=== PATIENT | male | born 1990 | race Caucasian/White ===

== ENCOUNTER 2016-07-12 12:02 | Inpatient (IN) | payer BC, OTHER ==
[~2016-07-12] VITALS: Ht 177.8 cm; Wt 79.4 kg
--- NOTE | 2016-07-12 14:50 | NUR ---
Admission Note VS: BP: 113/61 HR:66, SpO2: 97%, RR: 16, Temp: 98.2 Pain: 0/10 Height: 5'10" Weight: 175 LB Allergies: JOCELIN Pt is a 25 y/o female admitted to [facility] on 07/12/16 at 1450. Pt is under the care of Dr. Lux for opiate and benzo dependence. Pt denies suicidal and homicidal ideations at this time. Pt denies being hospitalized in the past 30 days. Pt denies Chest Pain and SOB. Pt reports using Wellbutrin 300mg, Sertralize 100mg, Preparation H cream, Tylenol 500mg, Zquil and Omeprazole. Upon assessment pt's skin is intact. CIWA 4 and COWS 4 upon admission. NKA, A/Ox4 and able to answer questions necessary for the admission process. Pt is Full Code. VS WNL, Regular Diet. Pt denies having seizures. Pt denies having a PCP. Breathing is even and unlabored, SpO2 is 97% on RA. Pt ambulates with a steady gait, pt reports feeling very tired. Pt states bowel habits are normal but bleeding is sometimes present in stool due to hemorrhoids Pt reports Hx of treatment in [facility] in 2013. Pt reports living with alone. Hx of Anxiety and Depression. Pt states he already got the PNA vaccination and wants the Flu vaccination. Pt smokes approximately [address] Lux has been notified, and has placed client under observation. All needs have been met. Pt has been oriented to the room and the unit. All safety measures in place per hospital policy. Bed in lowest position, side rails up x2 and padded, call-light within reach. Will continue to monitor. Substance Abuse: Xanax 2-3 mg daily for 11 days, last used 2 mg on 07/11/16 at 0030 Oxycodone 45 mg for 10 days, last used 30 mg on 07/11/16 at 0030 Percoset "40mg" for 10 days, last used 30mg on 07/08/16 [place] "25 mg" for 10 days, last used 20mg on 07/08/16 Marijuana 1 gram for 3 weeks, last used 3/4 of a gram on 07/12/16 at 1100
[2016-07-12] MEDS ORDERED: PHEN26CR RC (15:36)
[2016-07-12] MEDS ORDERED: BUPR300T54 PO (15:36)
[2016-07-12] MEDS ORDERED: OMEP20TA68 PO (15:36)
[2016-07-12] MEDS ORDERED: ZQUIL (15:36)
[2016-07-12] MEDS ORDERED: ACET-2154 PO (15:36)
[2016-07-12] MEDS ORDERED: SERT100T PO (15:36)
[2016-07-12 15:37] VITALS: BP 113/61
[2016-07-12 15:48] LABS: *AMPHETAMINE, URINE NEGATIVE (NEGATIVE); *BARBITURATE, URINE NEGATIVE (NEGATIVE); *CANNABINOID, URINE POSITIVE (NEGATIVE); *COCCAINE, URINE NEGATIVE (NEGATIVE); *OPIATE, URINE POSITIVE (NEGATIVE); *PHENCYCLIDINE SCREEN,URINE NEGATIVE (NEGATIVE)
[2016-07-12] MEDS ORDERED: ONDANSETRON ODT 4 MG TAB.RAPDIS SL PRN (17:00)
[2016-07-12] MEDS ORDERED: METHOCARBAMOL 750 MG TABLET PO PRN (17:00)
[2016-07-12] MEDS ORDERED: CLONIDINE HCL 0.1 MG TABLET PO PRN (17:00)
[2016-07-12] MEDS ORDERED: IBUPROFEN 400 MG TABLET PO PRN (17:00)
[2016-07-12] MEDS ORDERED: diphenhydrAMINE 50 MG CAPSULE PO PRN (17:00)
[2016-07-12] MEDS ORDERED: MAGNESIUM HYDROXIDE 30 ML LIQUID UDC PO PRN (17:00)
[2016-07-12] MEDS ORDERED: ACETAMINOPHEN 325 MG TABLET PO PRN (17:00)
[2016-07-12] MEDS ORDERED: BUPRENORPHINE HCL 2 MG TAB.SUBL SL PRN (17:00)
[2016-07-12] MEDS ORDERED: HYDROXYZINE PAMOATE 25 MG CAPSULE PO PRN (17:00)
[2016-07-12] MEDS ORDERED: ONDANSETRON 4 MG/2 ML VIAL IM PRN (17:00)
[2016-07-12] MEDS ORDERED: MAG HYDROX/AL HYDROX/SIMETH 30 ML LIQUID UDC PO PRN (17:00)
[2016-07-12] MEDS ORDERED: DICYCLOMINE HCL 20 MG TABLET PO PRN (17:00)
[2016-07-12] MEDS ORDERED: LOPERAMIDE HCL 2 MG CAPSULE PO PRN ×2 (17:00)
[2016-07-12] MEDS ORDERED: LORAZEPAM 2 MG/1 ML VIAL IM PRN (17:00)
[2016-07-12] MEDS ORDERED: LORAZEPAM 1 MG TABLET PO PRN ×2 (17:00)
[2016-07-12] MEDS ORDERED: MIRALAX 17 GM POWD.PACK PO PRN (17:00)
[2016-07-12 17:40] LABS: BASOPHILS # (AUTO) 0.1 K/uL (0.0-0.2); BASOPHILS % (AUTO) 0.8 % (0.0-2.0); EOSINOPHILS % (AUTO) 0.2 % (0.0-7.0); HEMATOCRIT 43.8 % (40.0-50.0); HEMOGLOBIN 14.7 g/dL (14.0-18.0); LYMPHOCYTES # (AUTO) 1.9 K/uL (0.8-4.8); LYMPHOCYTES % (AUTO) 26.1 % (20.5-51.5); MEAN CORPUSCULAR HEMOGLOBIN 28.6 uug (27.0-31.0); MEAN CORPUSCULAR HGB CONC 34 g/dL (32.0-37.0); MEAN CORPUSCULAR VOLUME 85.5 fL (82.0-92.0); MONOCYTES # (AUTO) 0.4 K/uL (0.1-1.30); MONOCYTES % (AUTO) 5.7 % (0.0-11.0); NEUTROPHILS # (AUTO) 4.9 K/uL (1.8-8.9); NEUTROPHILS % (AUTO) 67.2 % (38.5-71.5); PLATELET COUNT (AUTO) 196 K/uL (150-450); RED BLOOD CELL COUNT(AUTO) 5.13 MIL/uL (4.70-6.10); RED CELL DISTRIBUTION WIDTH 11.6 % (11.5-14.5); WHITE BLOOD COUNT (AUTO) 7.4 K/uL (4.0-11.2)
[2016-07-12 17:51] LABS: ETHANOL < 3 MG/DL (0-0)
[2016-07-12 18:12] LABS: ALANINE AMINOTRANSFERASE 19 U/L (16-63); ALBUMIN 4.1 g/dL (3.4-5.0); ALKALINE PHOSPHATASE 53 U/L (50-136); ASPARTATE AMINOTRANSFERASE 19 U/L (15-37); BILIRUBIN,TOTAL 0.6 mg/dL (0.2-1.0); CALCIUM 8.9 mg/dL (8.5-10.1); CARBON DIOXIDE 31 mmol/L (21-32); CHLORIDE 104 mmol/L (98-107); GFR 61 mL/min (>60); GLUCOSE 88 mg/dL (74-106); HIV-1 p24 ANTIGEN NON REACTIVE (NONREACTIVE); HIV-1/2 ANTIBODY NON REACTIVE (NONREACTIVE); POTASSIUM 3.8 mmol/L (3.5-5.1); SODIUM SERUM 141 mmol/L (136-145); TOTAL PROTEIN, SERUM 7.3 g/dL (6.4-8.2); UREA NITROGEN, BLOOD 11 mg/dL (7-18)
[2016-07-12 18:20] LABS: CREATININE 1.4 mg/dL (0.6-1.3); THYROID STIMULATING HORMONE 0.462 mIU/mL (0.358-3.740)
--- NOTE | 2016-07-12 19:28 | NUR ---
END OF SHIFT Endorsed to binder folder operator nurse. 25 year old male admitted for opiate and benzo dependence. Pt is A/O x4. Reports medal history of anxiety and depression. Most recent COWS 4, CIWA 4. NKA, full code regular diet. Pt has not been placed on a taper, and is on PRN medications for now, No PRN medications needed or administered throughout shift. Pt V/S remain WNL. All needs met, safety precautions are in place, binder folder operator to continue monitoring.
--- NOTE | 2016-07-12 19:30 | NUR ---
START OF SHIFT NOTE : Pt. is 25 year old male admitted for opiate and benzo dependence on 07/12/2016. Pt is A/O x4. Reports medal history of anxiety and depression. Most recent COWS 4, CIWA 4 at 16:00. NKA, full code regular diet. Pt has been placed on 4 days Subutex taper, started on 07/13/2016 and is on PRN medications for now. Pt V/S remain WNL. All needs met, safety precautions are in place, hourly shift manager to continue monitoring. Safety measures in place : bed on lowest position with side rails x2 up for safety, call light within reach. Will continue to monitor closely and offer help.
[2016-07-12 20:00] VITALS: BP 98/44
--- NOTE | 2016-07-13 06:43 | NUR ---
END OF SHIFT NOTE : Pt. is 25 year old male admitted for opiate and benzo dependence on 07/12/2016. Pt is A/O x4. Reports medal history of anxiety and depression. Pt has been placed on 4 days Subutex taper, started on 07/13/2016 and is on PRN medications for now. Pt remains compliant with the treatment plan. Pt denies nausea, vomiting and diarrhea. No PRNs were given during my shift. V/S remain WNL. RR=16, even and unlabored, lungs clear upon auscultation, abdomen soft and non- distended. Pt denies nausea, vomiting and diarrhea. LAST CIWA= ,COWS= at 0400 , INTAKE= ml, voided x 2, slept 5 hours. Safety measures in place : bed on lowest position with side rails x2 up for safety, call light within reach. Will continue to monitor closely and offer help.
--- NOTE | 2016-07-13 06:48 | NUR ---
LAST CIWA=3, COWS=1, [id number]=778ms
[2016-07-13] MEDS: PANTOPRAZOLE SODIUM 40 MG TABLET.DR PO SCH (07:01)
--- NOTE | 2016-07-13 07:39 | NUR ---
START OF SHIFT Received report from commercial relationship manager nurse. 25 year old male admitted for opiate and benzo dependence. Pt is A/O x4. Reports medical history of anxiety and depression. Most recent COWS 3, CIWA 1. NKA, full code regular diet. Pt is to start 4 day Subutex taper today at 0900. No PRN medications needed or administered throughout night. Pt V/S remain WNL. Pt slept for 5 hours. Pt remains calm, compliant and cooperative. All needs met, safety precautions are in place, will continue monitoring.
[2016-07-13 08:00] VITALS: BP 108/68
[2016-07-13] MEDS ORDERED: 4 DAY TAPER BUPRENORPHINE -SERENITY PROTOCOL SL PRN (09:00)
[2016-07-13] MEDS ORDERED: TUBERCULIN,PURIF.PROT.DERIV. 5 TU/0.1 ML TEST ID ONE (09:00)
[2016-07-13] MEDS ORDERED: BUPRENORPHINE HCL 2 MG TAB.SUBL SL SCH (09:00)
[2016-07-13] MEDS ORDERED: Medication Not On Formulary EA (Omeprazole 1 TAB) PO SCH (09:00)
[2016-07-13] MEDS: MULTIVITAMINS,THERAPEUTIC TABLET PO SCH (09:31)
[2016-07-13] MEDS: DOCUSATE SODIUM 250 MG CAPSULE PO SCH (09:31)
--- NOTE | 2016-07-13 09:51 | NUR ---
MD COMMUNICATION: SUBUTEX TAPER WAS DC'D BECAUSE PT IS NOT PRESENTING WITH ACUTE S/S OF W/D. CHEST XRAY WILL BE ORDERED TO RULE OUT ACTIVE TB. WILL CONTINUE TO MONITOR
[2016-07-13] MEDS: SERTRALINE HCL 100 MG TABLET PO SCH (11:36)
[2016-07-13 13:06] VITALS: BP 96/68
[2016-07-13 17:28] VITALS: BP 104/55
--- NOTE | 2016-07-13 18:41 | NUR ---
END OF SHIFT 25 year old male admitted for opiate and benzo dependence. Pt is A/O x4. Reports medical history of anxiety and depression. Most recent COWS 2, CIWA 1. CXR was done and results are negative for active tb. NKA, full code regular diet.Pt taper was d/c because pt does not present with s/s of withdrawal. No PRN medications needed or administered throughout night. Pt V/S remain WNL. Pt Pt remains calm, compliant and cooperative. Encouraged to verbalize feelings, calming reassurance provided. All needs met, safety precautions are in place, screen machine operator will continue monitoring.
--- NOTE | 2016-07-13 19:05 | NUR ---
Start of Shift Patient Received. Patient is in his room, sleeping but easily arousable to verbal stimuli. Breathing even and non labored. No signs of pain or discomfort noted. Patient is a 25 year old male, admitted on 07/13/15 for Opiate and Benzo Dependence, under the care of Dr. Lux, and is currently receiving a 4 day Subutex taper. Patient verbalizes No known allergies, full code, following a regular diet, skin is intact, placed on fall and seizure precautions. Patient verbalized past medical history of Anxiety and Depression. Per endorsement, patient has been noted to be isolative to room. Chest X-ray rendered and noted negative. Last CIWA noted was 2 and Last CIWA noted 1. Will continue to encourage patient to participate in social and group activities. All needs attended to promptly. Will continue plan of care as ordered.
[2016-07-13 20:29] VITALS: BP 118/69
[2016-07-14 00:25] VITALS: BP 114/59
[2016-07-14 04:09] VITALS: BP 105/64
[2016-07-14] MEDS: PANTOPRAZOLE SODIUM 40 MG TABLET.DR PO SCH (06:11)
--- NOTE | 2016-07-14 07:14 | NUR ---
End of Shift Patient is in bed sleeping but easily arousable to verbal stimuli. Breathing even and non labored. No signs of pain or discomfort noted. Patient is a 25 year old male, admitted on 07/13/15 for Opiate and Benzo Dependence, under the care of Dr. Lux, and is currently receiving a 4 day Subutex taper. Patient verbalizes No known allergies, full code, following a regular diet, skin is intact, placed on fall and seizure precautions. Patient verbalized past medical history of Anxiety and Depression. Patient participated in group social and was noted to engage in activities. No PRN Medications administered. All needs attended to promptly. Will endorse to continue plan of care as ordered.
--- NOTE | 2016-07-14 07:45 | NUR ---
START OF SHIFT NOTE Pt is a 25 yr old male, AA&OX3. Pt was admitted on 07/12/16 for Opiate/Benzo Dependence and is on PRN's for s/s of w/d. Pt is full code regular diet and NKA. Pt reports of PMH of Anxiety and Depression. No PRN's were given during the night. Last COWS score was 3, CIWA score was 2. Pt slept for 8 hrs. Pt verbalizes of feeling sad and is observed writing in his journal. Pt denies any SI/HI. Skin is intact, warm and dry to touch. No tremors seen or felt. Pt denies any n/v. Safety precautions observed. Encouraged pt to attend group activities and group session. Pt verbalized understanding. Will continue to monitor.
[2016-07-14 08:00] VITALS: BP 121/69
[2016-07-14 08:49] LABS: CALCIUM 9.5 mg/dL (8.5-10.1); CREATININE 1.4 mg/dL (0.6-1.3)
[2016-07-14] MEDS: MULTIVITAMINS,THERAPEUTIC TABLET PO SCH (08:54)
[2016-07-14] MEDS: DOCUSATE SODIUM 250 MG CAPSULE PO SCH (08:54)
[2016-07-14] MEDS: SERTRALINE HCL 100 MG TABLET PO SCH (08:54)
[2016-07-14] MEDS: buPROPion XL 150 MG TAB.SR.24H PO SCH (08:54)
[2016-07-14] MEDS ORDERED: BUPRENORPHINE HCL 2 MG TAB.SUBL SL SCH ×2 (09:00→15:00)
[2016-07-14 10:07] LABS: HCV AB <0.1 s/co ratio (0.0-0.9); HEPATITIS B CORE AB, IgM Negative (Negative); HEPATITIS B SURFACE AG Negative (Negative)
[2016-07-14 12:00] VITALS: BP 113/64
[2016-07-14 16:00] VITALS: BP 112/76
--- NOTE | 2016-07-14 19:00 | NUR ---
END OF SHIFT Pt is a 25 yr old male, AA&OX3. Pt was admitted on 07/12/16 for Opiate/Benzo Dependence and is on PRN's for s/s of w/d. Pt is full code regular diet and NKA. Pt reports of PMH of Anxiety and Depression. Pt has been cooperative with plan of care and attended group sessions. Pt has been cooperative with medication regime. No PRN's were given during the day. Last COWS score was 1, CIWA score was 1. No acute distress noted. No SI/HI noted. Skin is intact, warm and dry to touch. No tremors seen or felt. Pt denies any n/v. Safety precautions observed. Pt is to be discharged tomorrow on 07/15/16. Endorsed to audograph operator nurse to collect urine for UDS. Safety precautions observed. Call light is within reach.
--- NOTE | 2016-07-14 19:05 | NUR ---
Start of Shift Patient Received. Patient is in activities room participating in group activities. Patient is a 25 year old male, admitted on 07/13/15 for Opiate and Benzo Dependence, under the care of Dr. Lux, with a 4 day Subutex taper ordered. Patient verbalizes No known allergies, full code, following a regular diet, skin is intact, placed on fall and seizure precautions. Patient verbalized past medical history of Anxiety and Depression. Per endorsement, Patient noted to participate in group activities and socials. Patient set for discharge tomorrow 07/15/16 to [facility]. All needs attended to promptly. Will continue plan of care as ordered.
[2016-07-14 20:10] VITALS: BP 125/75
--- NOTE | 2016-07-14 23:35 | NUR ---
PRN Medication Administration Patient verbalized inability of falling asleep. PRN Benadryl administered. Will continue to monitor for effectiveness.
[2016-07-15 00:13] LABS: *AMPHETAMINE, URINE NEGATIVE (NEGATIVE); *BARBITURATE, URINE NEGATIVE (NEGATIVE); *CANNABINOID, URINE POSITIVE (NEGATIVE); *COCCAINE, URINE NEGATIVE (NEGATIVE); *OPIATE, URINE NEGATIVE (NEGATIVE); *PHENCYCLIDINE SCREEN,URINE NEGATIVE (NEGATIVE)
[2016-07-15 00:15] VITALS: BP 122/72
--- NOTE | 2016-07-15 01:30 | NUR ---
PRN Medication Reassessment/PRN Medication Administration Patient noted returning from smoking patio. Patient verbalized "I guess Im excited about tomorrow. I went outside and smoked one too many cigarettes. I have a slight headache now." PRN Motrin administered. Patient verbalized "I came upstairs cause I feel like the Benadryl is kicking in." Will continue to monitor.
--- NOTE | 2016-07-15 02:15 | NUR ---
PRN Medication Reassessment patient noted in bed sleeping. PRN Benadryl noted to be effective. will continue to monitor.
--- NOTE | 2016-07-15 04:15 | NUR ---
Vitals, COWS, and CIWA Patient refused 0400 vitals. Patient verbalized "I just want to sleep" Patient respirations noted at 14. CIWA and COWS not able to be completed as per order. Will continue to monitor. Addendum: 07/15/16 at 0515 by STERLING CAPELLAN LVN Amended: Links added.
[2016-07-15] MEDS: PANTOPRAZOLE SODIUM 40 MG TABLET.DR PO SCH (06:17)
--- NOTE | 2016-07-15 07:10 | NUR ---
End of Shift Patient Received. Patient is in activities room participating in group activities. Patient is a 25 year old male, admitted on 07/13/15 for Opiate and Benzo Dependence, under the care of Dr. Lux, with a 4 day Subutex taper ordered. Patient verbalizes No known allergies, full code, following a regular diet, skin is intact, placed on fall and seizure precautions. Patient verbalized past medical history of Anxiety and Depression. Per endorsement, Patient noted to participate in group activities and socials. Patient set for discharge today 07/15/16 to [facility]. PRN Motrin and Benadryl administered and noted to be effective. All needs attended to promptly. Will continue plan of care as ordered.
--- NOTE | 2016-07-15 07:40 | NUR ---
START OF SHIFT NOTE: Received report from promotions specialist nurse. Patient is a 25 year old male, admitted on 07/13/15 for Opiate and Benzo Dependence to be discharged this AM. Pt is alert and oriented X 4. Color good, skin warm and dry. Respirations even and unlabored. Safety precautions observed. Call light within reach.
[2016-07-15] MEDS: SERTRALINE HCL 100 MG TABLET PO SCH (08:24)
[2016-07-15] MEDS: DOCUSATE SODIUM 250 MG CAPSULE PO SCH (08:24)
[2016-07-15] MEDS: buPROPion XL 150 MG TAB.SR.24H PO SCH (08:24)
[2016-07-15] MEDS: MULTIVITAMINS,THERAPEUTIC TABLET PO SCH (08:24)
--- NOTE | 2016-07-15 08:51 | NUR ---
Discharge papers and medication bag signed. VSS
[2016-07-15 08:52] VITALS: BP 106/60
[2016-07-15] MEDS ORDERED: BUPRENORPHINE HCL 2 MG TAB.SUBL SL SCH (09:00)
--- NOTE | 2016-07-15 10:28 | NUR ---
Patient discharged in stable condition with all valuables, belongings and medications. Pt denies SI/HI. To [facility] via [facility] private car.
[2016-07-16] MEDS ORDERED: BUPRENORPHINE HCL 2 MG TAB.SUBL SL SCH (09:00)
== END 2016-07-15 09:42 | disposition other institution (70) | DRG 895 ==
LOC: SRC 13:35
PROVIDERS: ADMIT Internal Medicine; ATTEND Internal Medicine
PROC: HZ31ZZZ Individual Counseling for Substance Abuse Treatment, Behavioral (ICD-10-PCS; principal; 2016-07-12)
PROC: HZ2ZZZZ Detoxification Services for Substance Abuse Treatment (ICD-10-PCS; principal; 2016-07-12)
DX: F11.23 Opioid dependence with withdrawal (principal); F33.2 Major depressive disorder, recurrent severe without psychotic features; E86.0 Dehydration; F13.239 Sedative, hypnotic or anxiolytic dependence with withdrawal, unspecified; Z79.899 Other long term (current) drug therapy; N28.9 Disorder of kidney and ureter, unspecified
CPT/HCPCS: 36415; 70030-TC; 71010; 80307; 80346; 80349; 80361; 83735; 84443; 85025; 86580; 86592; 86705; 86803; 87340; 87806; G6040-TC; Q0163